=== PATIENT | female | born 1945 | race Caucasian/White ===

== ENCOUNTER → 2020-08-06 10:08 | Outpatient (CLI) | payer MEDICARE, SELFPAY ==
[2020-08-06 08:46] VITALS: BMI 31.2
[2020-08-06 11:58] LABS: Absolute Neutrophil Count 3.8 X10^3/uL (2.0-7.7); Basophil# 0.04 X10^3/uL; Basophil% 0.6 % (0-1); Eosinophil# 0.08 X10^3/uL; Eosinophils% 1.3 % (0-5); Hematocrit 42.9 % (37-47); Hemoglobin 13.7 g/dL (12.0-15.0); Lymphocyte % 30.6 % (19-41); Mean Corp Hgb Conc 31.9 g/dL (32-36); Mean Corpuscular Hgb 29.3 pg (27.0-32.0); Mean Corpuscular Volume 91.9 fL (81-99); Monocyte# 0.37 X10^3/uL; NRBC Flagged by Analyzer 0 % (0-5); Neutrophil # 3.81 X10^3/uL (2.7-7.7); Neutrophil % 61.3 % (47-70); Platelet Count 197 K/mm3 (150-450); RBC Distribution Width CV 13.2 % (11.6-14.6); RBC Distribution Width SD 43.3 fl (35.1-43.9); Red Blood Count 4.67 M/mm3 (4.2-5.4); White Blood Count 6.2 K/mm3 (4.4-11.0)
[2020-08-06 12:22] LABS: ALB/GLOB Ratio 0.9 RATIO (0.9-2.4); AST(SGOT) 25 U/L (15-37); Alanine Aminotransfer ALT/SGPT 37 U/L (13-56); Albumin, Serum 3.8 g/dL (3.2-5.0); Alkaline Phosphatase 93 U/L (45-117); Anion Gap 5 (5-15); BUN 15 mg/dL (7-18); BUN/Creat Ratio 16.6 RATIO (10-20); Calcium,Total 9.5 mg/dL (8.5-10.1); Chloride 106 mmol/L (98-107); Cholesterol 245 mg/dL (200); EST Glomerular Filtration Rate 64 mL/min (>60); Est Glom Filt Rate - Afr Amer 78 mL/min (>60); Globulin 4.3 g/dL (2.2-4.2); Glucose 102 mg/dL (74-106); High Density Lipoprotein 57 mg/dL; Potassium 4.2 mmol/L (3.5-5.1); Protein, Total 8.1 g/dL (6.4-8.2); Sodium Level 139 mmol/L (136-145); Thyroid Stim Hormone (TSH) 1.49 uIU/mL (0.358-3.74); Triglycerides 180 mg/dL; Very Low Density Lipoprotein 36 mg/dL (5-40)
[2020-08-06 12:35] LABS: Vitamin D,25 Hydroxy 26.2 ng/mL
== END ==
PROVIDERS: PCP Internal Medicine; Referring Provider Internal Medicine; Visit Provider Internal Medicine
DX: E78.5 Hyperlipidemia, unspecified (principal); E55.9 Vitamin D deficiency, unspecified; R03.0 Elevated blood-pressure reading, without diagnosis of hypertension; Z87.442 Personal history of urinary calculi
CPT/HCPCS: 36415; 80053; 80061; 82306; 84443; 85025

== ENCOUNTER 2020-08-08 03:12 | Emergency (ER) | payer MEDICARE, SELFPAY ==
[2020-08-06 08:46] VITALS: BMI 31.2
[2020-08-08 03:13] VITALS: BP 198/98; PULSE 85; RESP 15; TEMP 36.6; O2SAT 98; BMI 31.4
--- NOTE | 2020-08-08 03:28 | CT_ITS ---
STUDY: CT ABDOMEN AND PELVIS WITHOUT CONTRAST REASON FOR EXAM: Female, 74 years old. FLANK PAIN RADIATION DOSAGE (If Supplied By Facility): CTDIvol = ( ) mGy, DLP = ( ) mGycm TECHNIQUE: Transaxial images were obtained from the dome of the diaphragm to the symphysis pubis without oral contrast, and without intravenous contrast. Sagittal and coronal images were reconstructed. Individualized dose optimization techniques were used for this CT. COMPARISON: None. FINDINGS: The visualized lung bases are unremarkable. The visualized portions of the heart are within normal limits. Normal liver. There is non-visualization of the gallbladder, which may be secondary to either contraction or a prior cholecystectomy. Normal spleen. There is diffuse atrophy of the pancreas. Normal bilateral adrenal glands. There is a combination of moderate right hydronephrosis and right peripelvic cyst formations as well as right perinephric fat stranding and edema. There is a stone at the right UVJ measuring roughly 3.3 mm. Mild atrophy of the left kidney with left parapelvic cysts. No evidence of hydronephrosis. There is a small hiatal hernia. Normal small intestine. There are multiple colonic diverticula consistent with diverticulosis. The appendix is visualized and appears normal. Normal abdominal aorta. Normal inferior vena cava. Normal retroperitoneum. Normal urinary bladder. There is atrophy of the uterus. Calcified uterine fibroids Normal abdominal wall. There are diffuse degenerative changes of the visualized lumbar spine. CT/Abdomen/Pelvis without Cont IMPRESSION: Right hydronephrosis and proximal right hydroureter with stone at the right UPJ. There is right perinephric fat stranding and edema. Bilateral peripelvic cyst formations are noted. Electronically Signed: Atif Nava DO at 4:46 EDT Tel , Service support ,
--- NOTE | 2020-08-08 03:29 | EDS_ITS ---
HPI HPI - GI History of Present Illness Chief Complaint: Abd Pain Informant: patient Abdominal Pain/Flank Pain Onset: Hours (2) Context: Sudden Onset (sleeping) Timing: Continuous and Waxes and wanes Quality: Dull Location: RLQ (no radiation) Current Severity: Moderate Maximum Severity: Moderate Worsened by: Nothing Relieved by: Nothing Nausea/Vomiting/Emesis GI Symptom: Positive for Nausea and Vomiting Onset: Today Quality: Positive for Nonbilious; Negative for Blood streaks, Coffee ground and Hematemesis Severity: Moderate Diarrhea/Melena/Hematochezia GI Symptom: Negative for Diarrhea, Melena and Hematochezia Associated Symptoms Associated Symptoms: Negative for Dysuria, Frequency, Hematuria and Urgency Narrative Narrative: Patient felt fine before going to bed tonight, she woke up in the middle of the night with this pain in her right lower quadrant. She has had prior cholecystectomy, and she had lithotripsy for a kidney stone a little more than 20 years ago. She recently had been diagnosed with zoster ophthalmicus, and some medications for that but takes no other prescriptions. Prior similar symptoms: Yes ([place]) PFSH [facility] Medical History Elevated blood pressure reading History of kidney stones History of shingles Home Medications neomyern/polymyx/dexoph 1 drp LEFT EYE TID 08/06/20 [History Last Taken Unknown] valacyclovir 1 gram tablet 1,000 mg PO DAILY tab 08/06/20 [History Last Taken Unknown] cephalexin 500 mg PO Q6 7 Days #28 capsule 08/08/20 [Rx Last Taken Unknown] lisinopril 20 mg PO DAILY #30 tab 08/08/20 [Rx Last Taken Unknown] ondansetron HCl 8 mg PO Q8H PRN #20 tab 08/08/20 [Rx Last Taken Unknown] oxycodone-acetaminophen [Percocet] 1 tab PO Q4H PRN 3 Days #14 tab 08/08/20 [Rx Last Taken Unknown] Allergy/AdvReac Type Severity Reaction Status Date / Time No Known Allergies Allergy Verified 08/08/20 03:20 Family History (Updated 07/28/20 @ 16:19 by Erna Pizano) Mother Diabetes Sister Arthritis Other Heart disease Liver disease Thyroid disorder Surgical History History of cholecystectomy Social History Smoking Status: Never smoker alcohol intake: current alcohol intake frequency: holidays/special occasions only Alcohol type: wine substance use type: does not use what type of physical activity do you participate in: walking ROS ROS ED Constitutional Constitutional ED: Denies chills or fever(s) Eyes Eyes: Denies change in vision or diplopia ENT ENT ED: Denies rhinorrhea or sore throat Cardiovascular Cardiovascular: Denies chest pain or palpitations Respiratory/Chest Respiratory/Chest: Denies cough or dyspnea Gastrointestinal Gastrointestinal: Reports abdominal pain, nausea and vomiting; Denies diarrhea Genitourinary Genitourinary ED: Denies dysuria or hematuria Musculoskeletal Musculoskeletal: Denies back pain or neck pain Integumentary Denies abscess or rash Neurologic Neurologic: Denies headache(s), paresthesias or weakness Psychiatric Psychiatric: Denies anxiety or suicidal thoughts EXAM Physical Exam Const Vital Signs: 08/08/20 03:13 08/08/20 05:54 08/08/20 07:22 Temperature 97.8 F Temperature Source Temporal Pulse Rate 85 58 L 59 L Respiratory Rate 15 16 16 Blood Pressure 198/98 H 162/83 H 210/95 H Blood Pressure Mean 131 109 133 Pulse Ox 98 98 Oxygen Delivery Method Room Air Room Air Positive well nourished and well developed Constitutional Narrative: Uncomfortable, actively vomiting; otherwise, no distress General Appearance ED: well developed and NAD HEENT Reports moist mucous membranes normocephalic and atraumatic Eyes PERRL and EOMs intact bilaterally Neck full ROM and supple Resp normal respiratory effort and clear to auscultation bilaterally Cardio regular rate, regular rhythm and no murmurs GI non-tender and non-distended Auscultation: normoactive bowel sounds Palpation: soft Back/Spine no CVA tenderness General Back: other FROM Extremity normal to inspection General Extremety ED: Negative for edema, pulses abnormal or tenderness General Extremity: Negative for edema or pulses abnormal Neuro oriented x3, CN's II-XII intact bilaterally and no sensory deficits noted Sensorium / Orientation: awake and alert Motor Exam: strength 5/5 throughout Skin no rashes or lesions noted and no wounds MDM MDM MDM Narrative Medical decision making narrative: CT confirms a 3.3 mm right ureteral stone with hydronephrosis and perinephric stranding. No other acute findings. Her urinalysis shows signs of infection. Her symptoms are more that of the obstruction as opposed to infection. She was treated with 1 g of IV Rocephin, and her urine was sent for culture. Her creatinine is just slightly elevated compared with her baseline, but not enough to admit her to the hospital just for that. Certainly it should be monitored. With 1 dose of morphine and Zofran, her symptoms were well controlled throughout her ED stay, which was over 4 hours, mainly because her blood pressure was elevated and after her pain went down her pressure went higher up to 210/95. Therefore she was given a dose of clonidine and observed longer, and I spoke with her PCP who called to check on her, and they were already monitoring her blood pressure so we will start her on lisinopril 20 mg daily, so she was given an initial dose of that as well. The patient is comfortable going home, her pressure is coming down gradually at this time, she will continue to be monitored to her family gets here, she was given prescriptions for symptom control in addition to the lisinopril and will follow up. Expectant management indicated as well as outpatient antibiotics. Lab Data Attestation: I reviewed the patient's lab results. Labs: Laboratory Results - last 24 hr 08/08/20 08/08/20 08/08/20 03:20 03:20 03:35 WBC 7.4 RBC 4.34 Hgb 13.1 Hct 39.1 MCV 90.1 MCH 30.2 MCHC 33.5 D RDW Std Deviation 41.6 RDW Coeff of Ling 12.9 Plt Count 167 MPV 11.9 Immature Gran % (Auto) 0.300 Neut % (Auto) 62.4 Lymph % (Auto) 28.3 [place] % (Auto) 7.4 Eos % (Auto) 0.9 Baso % (Auto) 0.7 Absolute Neuts (auto) 4.6 Absolute Lymphs (auto) 2.10 Nucleated RBC % 0 Sodium 139 Potassium 3.5 Chloride 105 Carbon Dioxide 29.0 Anion Gap 5 BUN 20 H Creatinine 1.10 H Estim Creat Clear Calc 39.76 Est GFR (MDRD) Af Amer 62 Est GFR (MDRD) Non-Af 51 L BUN/Creatinine Ratio 18.2 Glucose 141 H Calcium 9.8 Urine Color Yellow Urine Clarity Clear Urine pH 7.0 Ur Specific [place] 1.010 Urine Protein 15 H Urine Glucose (UA) Normal Urine Ketones Negative Urine Occult Blood 250 H Urine Nitrite Negative Urine Bilirubin Negative Urine Urobilinogen Normal Ur Leukocyte Esterase 500 H Urine RBC 10-25 SEEN Urine WBC 10-25 SEEN Ur Squamous Epith Cells 0-5 SEEN Ur Transition Epith Cell 0-5 SEEN Ur Renal Epithelial Cell 0-5 SEEN Urine Bacteria 2+ Urine Mucus 0 SEEN Discharge Plan Triage Chief Complaint: Abd Pain ED Provider: Truong Goyal Dx/Rx/DC Orders Clinical Impression: Ureterolithiasis, Colic, ureteral, Acute UTI, Accelerated hypertension Instructions: ED Hypertension, New (Begin Treatment), ED Kidney Stone w/ Colic Prescriptions: New oxycodone-acetaminophen [Percocet] 5-325 mg tablet 1 tab PO Q4H PRN (Reason: pain) 3 Days Qty: 14 RF: 0 ondansetron HCl 8 mg tablet 8 mg PO Q8H PRN (Reason: nausea and vomiting) Qty: 20 RF: 0 lisinopril 20 mg tablet 20 mg PO DAILY Qty: 30 RF: 0 cephalexin 500 mg capsule 500 mg PO Q6 7 Days Qty: 28 RF: 0 No Action neomyern/polymyx/dexoph 1 drp LEFT EYE TID RF: 0 valacyclovir 1 gram tablet 1,000 mg PO DAILY RF: 0 Primary Care Provider: Ebonie Em Referrals: Pepper Romo MD [STAFF PHYSICIAN] - 1 Week if not improving Ebonie Em MD [Primary Care Provider] - (call for appt) Activity Restrictions/Additional Instructions: Strain all your urine until you passed the stone, so you know it is out. If you do not pass it in 1 week, follow-up with urology. Disposition Disposition: Home, self care
--- NOTE | 2020-08-08 04:03 | ED.RN ---
Medication not crossing over and pharmacy is aware and working with [facility] department to rectify
--- NOTE | 2020-08-08 04:04 | ED.RN ---
Called and talked to and tried to call son and daughter to alert them but the daughter's phone, JACK, states it is JASMYNE so did not leave a message and the son's number was a male but the voicemail did not say his first name so not sure if that is his number. states he does not know their number and his does not have it either.
[2020-08-08 04:07] LABS: Mucous, Urine 0 SEEN /hpf (<or=2+)
[2020-08-08 04:11] LABS: Color, Urine Yellow (Yellow); Glucose, Dipstick Normal (Normal); Ketone-Dipstick Negative (Negative); Leukocyte Esterase-Dipstick 500 /ul (Negative); Nitrite-Dipstick Negative (Negative); Occult Blood-Urine 250 /ul (Negative); Protein-Dipstick 15 mg/dl (Negative); Urine Bilirubin Dipstick Negative (Negative); Urine Clarity Clear (Clear); Urine Urobilinogen Normal (Normal)
[2020-08-08 04:12] LABS: Absolute Neutrophil Count 4.6 X10^3/uL (2.0-7.7); Basophil# 0.05 X10^3/uL; Basophil% 0.7 % (0-1); Eosinophil# 0.07 X10^3/uL; Eosinophils% 0.9 % (0-5); Hematocrit 39.1 % (37-47); Hemoglobin 13.1 g/dL (12.0-15.0); Lymphocyte % 28.3 % (19-41); Mean Corp Hgb Conc 33.5 g/dL (32-36); Mean Corpuscular Hgb 30.2 pg (27.0-32.0); Mean Corpuscular Volume 90.1 fL (81-99); Mean Platelet Vol. 11.9 fl (6.2-12.0); Monocyte# 0.55 X10^3/uL; Monocyte% 7.4 % (0-10); NRBC Flagged by Analyzer 0 % (0-5); Neutrophil # 4.63 X10^3/uL (2.7-7.7); Neutrophil % 62.4 % (47-70); Platelet Count 167 K/mm3 (150-450); RBC Distribution Width CV 12.9 % (11.6-14.6); RBC Distribution Width SD 41.6 fl (35.1-43.9); Red Blood Count 4.34 M/mm3 (4.2-5.4); White Blood Count 7.4 K/mm3 (4.4-11.0)
[2020-08-08 04:19] LABS: Bacteria 2+ /hpf (None Seen); Red Blood Cells-Urine 10-25 SEEN /hpf (0-5); Squamous Epithelial Cells - UA 0-5 SEEN /hpf (5-10); White Blood Cells 10-25 SEEN /hpf (0-5)
[2020-08-08 04:20] LABS: Renal Epithelial Cells 0-5 SEEN /hpf (0-5); Transitional Epithelial - Ur 0-5 SEEN /hpf (0-5)
[2020-08-08 04:22] LABS: Anion Gap 5 (5-15); BUN 20 mg/dL (7-18); BUN/Creat Ratio 18.2 RATIO (10-20); Calcium,Total 9.8 mg/dL (8.5-10.1); Chloride 105 mmol/L (98-107); EST Glomerular Filtration Rate 51 mL/min (>60); Est Glom Filt Rate - Afr Amer 62 mL/min (>60); Estimated Creatinine Clearance 39.76 ml/min; Glucose 141 mg/dL (74-106); Potassium 3.5 mmol/L (3.5-5.1); Sodium Level 139 mmol/L (136-145)
[2020-08-08] MEDS: Morphine 4 MG/ML Syringe IV (04:22)
[2020-08-08] MEDS: Ondansetron 4 MG/2 ML Vial IV (04:22)
--- NOTE | 2020-08-08 04:22 | ED.RN ---
Meds still not crossing override so name, confirmed and [id number] on band. Ondanesron 4mg in 2 ml (lot [id number] and exp 10/2021) given along with the morphine 4 mg in 1 ml (lot [id number] exp 08/25/2021). Both IV and pain a 3.
[2020-08-08] MEDS: Ceftriaxone 1 GM/50 ML BAG IV (05:48)
[2020-08-08 05:54] VITALS: BP 162/83; PULSE 58; RESP 16; O2SAT 98
[2020-08-08 07:22] VITALS: BP 210/95; PULSE 59; RESP 16
[2020-08-08] MEDS: cloNIDine HCl 0.2 MG Tablet PO (07:22)
[2020-08-08] MEDS: Lisinopril 20 MG Tablet PO (07:45)
[2020-08-08 08:10] VITALS: BP 195/103; PULSE 60; RESP 15
== END 2020-08-08 08:18 | disposition home or self-care (01) ==
PROVIDERS: Emergency Provider Emergency Medicine; PCP Internal Medicine
DX: N13.2 Hydronephrosis with renal and ureteral calculous obstruction (principal); N39.0 Urinary tract infection, site not specified; I10 Essential (primary) hypertension; Z87.442 Personal history of urinary calculi; Z79.899 Other long term (current) drug therapy
CPT/HCPCS: 74176; 80048; 81001; 85025; 87077; 87086; 87088; 87186; 96365; 96375; 99285; J7050; A4216; J2405

== ENCOUNTER 2023-09-04 12:21 | Emergency (ER) | payer MEDICARE, SELFPAY ==
[2023-09-04 12:22] VITALS: BP 200/104; PULSE 89; RESP 16; TEMP 36.7; O2SAT 97; BMI 28.3
[2023-09-04 13:38] LABS: Mucous, Urine 0 SEEN /hpf (<or=2+)
[2023-09-04 13:40] LABS: Absolute Neutrophil Count 8.7 X10^3/uL (2.0-7.7); Basophil# 0.04 X10^3/uL; Basophil% 0.4 % (0-1); Eosinophil# 0.03 X10^3/uL; Eosinophils% 0.3 % (0-5); Hematocrit 39.5 % (37-47); Lymphocyte % 10.2 % (19-41); Mean Corp Hgb Conc 32.9 g/dL (32-36); Mean Corpuscular Hgb 30.2 pg (27.0-32.0); Mean Corpuscular Volume 91.6 fL (81-99); Mean Platelet Vol. 11.7 fl (6.2-12.0); Monocyte# 0.79 X10^3/uL; Monocyte% 7.4 % (0-10); NRBC Flagged by Analyzer 0 % (0-5); Neutrophil # 8.74 X10^3/uL (2.7-7.7); Neutrophil % 81.3 % (47-70); Platelet Count 153 K/mm3 (150-450); RBC Distribution Width CV 13.1 % (11.6-14.6); RBC Distribution Width SD 43.8 fl (35.1-43.9); Red Blood Count 4.31 M/mm3 (4.2-5.4); White Blood Count 10.7 K/mm3 (4.4-11.0)
[2023-09-04 13:43] LABS: Color, Urine Yellow (Yellow); Glucose, Dipstick Normal (Normal); Ketone-Dipstick Negative (Negative); Leukocyte Esterase-Dipstick 500 /ul (Negative); Nitrite-Dipstick Negative (Negative); Occult Blood-Urine 250 /ul (Negative); Protein-Dipstick Negative (Negative); Specific Gravity, Urine 1.015 (1.002-1.030); Urine Bilirubin Dipstick Negative (Negative); Urine Clarity Sl. Cloudy (Clear); Urine Urobilinogen Normal (Normal)
[2023-09-04 13:50] LABS: Bacteria 1+ /hpf (None Seen); Red Blood Cells-Urine 0-5 SEEN /hpf (0-5); Squamous Epithelial Cells - UA 0-5 SEEN /hpf (5-10); White Blood Cells 0-5 SEEN /hpf (0-5)
--- NOTE | 2023-09-04 13:53 | EDS_ITS ---
HPI HPI - GI History of Present Illness Chief Complaint: Abd Pain Informant: patient Abdominal Pain/Flank Pain Onset: Days (3) Context: Gradual Onset Timing: Continuous Quality: Aching Location: LLQ Worsened by: Nothing Relieved by: Nothing Nausea/Vomiting/Emesis GI Symptom: Negative for Nausea or Vomiting Diarrhea/Melena/Hematochezia GI Symptom: Negative for Diarrhea, Melena or Hematochezia Associated Symptoms Associated Symptoms: Negative for Dysuria, Frequency, Hematuria or Urgency Narrative Narrative: Patient presents with abdominal pain that has been getting worse over the past 3 days. Patient states it is mainly over the left lower quadrant. Patient denies any radiation to her flank. Patient states she has a history of kidney stones. Patient states she usually has pain radiating into her flank with her kidney stones. Patient denies any dysuria, frequency, or hematuria. Patient describes her pain as aching. Patient states it has been constant. Patient states nothing makes it better nothing makes it worse. Patient denies any nausea or vomiting. Patient denies any diarrhea, melena, or hematochezia. PFSH PFS Medical History Elevated blood pressure reading History of shingles History of kidney stones Home Medications ?Medication ?Instructions ?Recorded ?Last Taken ?Type neomyern/polymyx/dexoph 1 drp LEFT EYE TID 08/06/20 Unknown History cephalexin 500 mg capsule 500 mg PO Q6 7 days #28 CAPSULES 08/08/20 Unknown Rx ondansetron HCl 8 mg tablet 8 mg PO Q8H PRN nausea and 08/08/20 Unknown Rx vomiting #20 tabs oxycodone-acetaminophen 5 mg-325 1 tab PO Q4H PRN pain 3 days #14 08/08/20 Unknown Rx mg tablet (Percocet) tabs valacyclovir 1 gram tablet 1,000 mg PO .COMPLEX #30 tabs 08/14/20 Unknown Rx lisinopril 20 mg tablet 20 mg PO DAILY #90 tabs 11/29/22 Unknown Rx Allergy/AdvReac Type Severity Reaction Status Date / Time No Known Allergies Allergy Verified 09/04/23 12:24 Family History (Updated 07/28/20 @ 16:19 by Erna Pizano) Mother Diabetes Sister Arthritis Other Heart disease Liver disease Thyroid disorder Surgical History History of cholecystectomy Social History Smoking Status: Never smoker alcohol intake: current alcohol intake frequency: holidays/special occasions only Alcohol type: wine substance use type: does not use what type of physical activity do you participate in: walking ROS ROS ED Constitutional Constitutional ED: Denies chills or fever(s) Eyes Eyes: Denies blurry vision or change in vision ENT ENT ED: Denies rhinorrhea or sore throat Cardiovascular Cardiovascular: Denies chest pain or palpitations Respiratory/Chest Respiratory/Chest: Denies cough or dyspnea Gastrointestinal Gastrointestinal: Reports abdominal pain; Denies nausea or vomiting Genitourinary Genitourinary ED: Denies dysuria or hematuria Musculoskeletal Musculoskeletal: Denies back pain or neck pain Integumentary Reports rash; Denies abscess Neurologic Neurologic: Denies headache(s) or weakness Allergic/Immunologic Allergic/Immunologic ED: Denies mouth swelling or urticaria EXAM Physical Exam Const Vital Signs: 09/04/23 12:22 09/04/23 14:22 09/04/23 16:00 Temperature 98.1 F Temperature Source Temporal Pulse Rate 89 65 68 Respiratory Rate 16 20 H 18 Blood Pressure 200/104 H 155/76 H 148/77 H Blood Pressure Mean 136 102 100 Pulse Ox 97 95 98 Oxygen Delivery Method Room Air Positive well nourished and well developed General Appearance ED: well developed and NAD HEENT Reports moist mucous membranes Neck supple and no JVD Resp normal respiratory effort and clear to auscultation bilaterally Cardio regular rate and regular rhythm GI non-distended Palpation: soft and tender LLQ; Negative for guarding or rebound tenderness present Back/Spine no CVA tenderness Neuro CN's II-XII intact bilaterally, moves all extremities and no sensory deficits noted Sensorium / Orientation: alert Motor Exam: strength 5/5 throughout Psych mental status grossly normal and thought process normal MDM MDM MDM Narrative Medical decision making narrative: Differential diagnosis includes ureteral calculus, diverticulitis, diverticulosis, gastroenteritis, urinary tract infection, and pyelonephritis. CT scan of the abdomen pelvis will be obtained to assess for ureteral calculus, diverticulitis, and pyelonephritis. CBC will be obtained to assess for leukocytosis and anemia. Basic metabolic profile will be obtained to assess for electrolyte abnormality and renal function. Urinalysis will be obtained to assess for urinary tract infection and hematuria. Lab Data Attestation: I reviewed the patient's lab results. Lab results narrative: CBC was reviewed and was within normal limits. Basic metabolic profile was reviewed and was within normal limits. Urinalysis was reviewed. Leukocyte esterase was 500 and occult blood was 250. There were 0-5 red blood cells and 0-5 white blood cells noted. Labs: Laboratory Results - last 24 hr 09/04/23 09/04/23 13:30 13:33 WBC 10.7 RBC 4.31 Hgb 13.0 Hct 39.5 MCV 91.6 MCH 30.2 MCHC 32.9 RDW Std Deviation 43.8 RDW Coeff of Ling 13.1 Plt Count 153 MPV 11.7 Immature Gran % (Auto) 0.400 Neut % (Auto) 81.3 H Lymph % (Auto) 10.2 L [place] % (Auto) 7.4 Eos % (Auto) 0.3 Baso % (Auto) 0.4 Absolute Neuts (auto) 8.7 H Absolute Lymphs (auto) 1.10 Nucleated RBC % 0 Sodium 136 Potassium 3.5 Chloride 108 H Carbon Dioxide 26.0 Anion Gap 2 L BUN 28 H Creatinine 1.02 Estim Creat Clear Calc 45.92 Est GFR (MDRD) Af Amer 67 Est GFR (MDRD) Non-Af 56 L BUN/Creatinine Ratio 27.5 H Glucose 131 H Calcium 10.1 Urine Color Yellow Urine Clarity Sl. Cloudy Urine pH 6.0 Ur Specific [place] 1.015 Urine Protein Negative Urine Glucose (UA) Normal Urine Ketones Negative Urine Occult Blood 250 H Urine Nitrite Negative Urine Bilirubin Negative Urine Urobilinogen Normal Ur Leukocyte Esterase 500 H Urine RBC 0-5 SEEN Urine WBC 0-5 SEEN Ur Squamous Epith Cells 0-5 SEEN Urine Bacteria 1+ Urine Mucus 0 SEEN Radiography Diagnostic Testing: Clinical Impression(s) from Imaging Studies Abdomen/Pelvis CT 09/04/23 14:38 IMPRESSION: Left hydronephrosis and left hydroureter with the perinephric stranding and periureteric stranding. Findings are in keeping with a recently passed 3 mm calculus which is at the base of the bladder on the left side. Stable bilateral renal cysts and parapelvic cysts. Electronically Signed: Marco Zhu MD at 15:26 EDT , CT scan of the abdomen pelvis was obtained. There is left hydronephrosis and hydroureter with perinephric and periureteral stranding. There is a recently passed 3 mm calculus at the base of the bladder on the left. There is no other acute abnormality noted. This was interpreted by the radiologist was also independently reviewed by myself. Treatment and Re-Evaluation :: Patient was given IV Toradol. Patient was feeling better on reevaluation. Patient was advised of her findings. Patient was instructed plenty fluids. P leroy was instructed to follow-up with her primary care physician and urologist in 5 to 7 days. Patient understood and was agreeable with the plan. All questions were answered. Discharge Plan Triage Chief Complaint: Abd Pain ED Provider: Jaspreet Jeffrey Dx/Rx/DC Orders Clinical Impression: Ureterolithiasis, Colic, ureteral Instructions: ED Kidney Stone, Passed Prescriptions: No Action neomyern/polymyx/dexoph 1 drp LEFT EYE TID oxycodone-acetaminophen [Percocet] 5-325 mg tablet 1 tab PO Q4H PRN (Reason: pain) 3 Days Qty: 14 0RF ondansetron HCl 8 mg tablet 8 mg PO Q8H PRN (Reason: nausea and vomiting) Qty: 20 0RF cephalexin 500 mg capsule 500 mg PO Q6 7 Days Qty: 28 0RF valacyclovir 1 gram tablet 1,000 mg PO .COMPLEX Qty: 30 0RF Rx Instructions: Take 1 tablet every 8 hours for 7 days then 1 tablet daily for 30 days lisinopril 20 mg tablet 20 mg PO DAILY Qty: 90 3RF Primary Care Provider: Ebonie Em Referrals: Pepper Romo MD [Med Staff - Active Staff] - 5-7 Days Ebonie Em MD [Primary Care Provider] - 5-7 Days Print Language: Lebanese Disposition Disposition: Home, Self Care
[2023-09-04 13:54] LABS: Anion Gap 2 (5-15); BUN 28 mg/dL (7-18); BUN/Creat Ratio 27.5 RATIO (10-20); Calcium,Total 10.1 mg/dL (8.5-10.1); Chloride 108 mmol/L (98-107); Creatinine, Serum 1.02 mg/dL (0.55-1.02); EST Glomerular Filtration Rate 56 mL/min (>60); Est Glom Filt Rate - Afr Amer 67 mL/min (>60); Estimated Creatinine Clearance 45.92 ml/min; Glucose 131 mg/dL (74-106); Potassium 3.5 mmol/L (3.5-5.1); Sodium Level 136 mmol/L (136-145)
[2023-09-04 14:22] VITALS: BP 155/76; PULSE 65; RESP 20; O2SAT 95
--- NOTE | 2023-09-04 14:38 | CT_ITS ---
STUDY: CT ABDOMEN AND PELVIS WITHOUT CONTRAST REASON FOR EXAM: Female, 78 years old. Abdominal pain RADIATION DOSAGE (If Supplied By Facility): CTDIvol = ( 10.90 ) mGy, DLP = ( 490.14 ) mGycm TECHNIQUE: Transaxial images were obtained from the dome of the diaphragm to the symphysis pubis without oral contrast, and without intravenous contrast. Sagittal and coronal images were reconstructed. Individualized dose optimization techniques were used for this CT. COMPARISON: Comparison is made with prior study dated August 08, 2020. FINDINGS: Stable minimal scarring in the lingular segment of the left upper lobe. The visualized portions of the heart are within normal limits. Normal liver. The patient is status post cholecystectomy. Normal spleen. Normal pancreas. Normal bilateral adrenal glands. There is a 4.9 cm x 4.3 cm cyst in the anterior aspect of the right kidney. This also evidence of a small cyst in the lower pole of the right kidney as well as parapelvic cysts. Left perinephric stranding. Left parapelvic renal cysts and left hydronephrosis. There is a 3 mm calculus at the base of the bladder on the left side suggestive of a recently passed calculus. Left periureteric stranding. Normal visualized stomach. Normal small intestine. There are multiple colonic diverticula consistent with diverticulosis. The appendix is visualized and appears normal. Normal abdominal aorta. Normal inferior vena cava. Normal retroperitoneum. Normal urinary bladder. There is atrophy of the uterus. Calcified uterine fibroids. Normal abdominal wall. There are diffuse degenerative changes of the visualized lumbar spine. CT/Abdomen/Pelvis without Cont IMPRESSION: Left hydronephrosis and left hydroureter with the perinephric stranding and periureteric stranding. Findings are in keeping with a recently passed 3 mm calculus which is at the base of the bladder on the left side. Stable bilateral renal cysts and parapelvic cysts. Electronically Signed: Marco Zhu MD at 15:26 EDT ,
[2023-09-04] MEDS: Ketorolac 15 MG/ML Vial IV (15:59)
[2023-09-04 16:00] VITALS: BP 148/77; PULSE 68; RESP 18; O2SAT 98
[2023-09-04 16:25] VITALS: BP 138/77; PULSE 81; RESP 14; TEMP 36.6; O2SAT 100
== END 2023-09-04 16:28 | disposition home or self-care (01) ==
PROVIDERS: Emergency Provider Emergency Medicine; PCP Internal Medicine; Visit Provider Emergency Medicine
DX: N13.2 Hydronephrosis with renal and ureteral calculous obstruction (principal); N23 Unspecified renal colic; Z87.442 Personal history of urinary calculi
CPT/HCPCS: 74176; 80048; 81001; 85025; 96374; 99283; A4216

== ENCOUNTER → 2023-09-11 | Outpatient (CLI) | payer MEDICARE, SELFPAY ==
[2023-09-11 15:34] LABS: Bacteria 0 SEEN /hpf (None Seen); Mucous, Urine 0 SEEN /hpf (<or=2+)
[2023-09-11 16:51] LABS: Absolute Lymphocyte Count 2.01 X10^3/uL (0.83-4.51); Absolute Neutrophil Count 3.8 X10^3/uL (2.0-7.7); Basophil# 0.03 X10^3/uL; Basophil% 0.5 % (0-1); Eosinophil# 0.11 X10^3/uL; Eosinophils% 1.7 % (0-5); Hematocrit 36.1 % (37-47); Hemoglobin 11.6 g/dL (12.0-15.0); Lymphocyte # 2.01 X10^3/ul (0.83-4.51); Lymphocyte % 31.9 % (19-41); Mean Corp Hgb Conc 32.1 g/dL (32-36); Mean Corpuscular Hgb 30.1 pg (27.0-32.0); Mean Corpuscular Volume 93.5 fL (81-99); Mean Platelet Vol. 11.3 fl (6.2-12.0); Monocyte# 0.35 X10^3/uL; Monocyte% 5.6 % (0-10); NRBC Flagged by Analyzer 0 % (0-5); Neutrophil # 3.79 X10^3/uL (2.7-7.7); Neutrophil % 60.1 % (47-70); Platelet Count 209 K/mm3 (150-450); RBC Distribution Width CV 12.7 % (11.6-14.6); RBC Distribution Width SD 43.8 fl (35.1-43.9); Red Blood Count 3.86 M/mm3 (4.2-5.4); White Blood Count 6.3 K/mm3 (4.4-11.0)
[2023-09-11 16:55] LABS: Color, Urine Yellow (Yellow); Glucose, Dipstick Normal (Normal); Ketone-Dipstick Negative (Negative); Leukocyte Esterase-Dipstick 500 /ul (Negative); Nitrite-Dipstick Negative (Negative); Occult Blood-Urine 10 /ul (Negative); Protein-Dipstick Negative (Negative); Specific Gravity, Urine 1.025 (1.002-1.030); Urine Bilirubin Dipstick Negative (Negative); Urine Clarity Clear (Clear); Urine Urobilinogen Normal (Normal)
[2023-09-11 17:18] LABS: Red Blood Cells-Urine 0-5 SEEN /hpf (0-5); Squamous Epithelial Cells - UA 0-5 SEEN /hpf (5-10); White Blood Cells 5-10 SEEN /hpf (0-5)
[2023-09-11 22:04] LABS: ALB/GLOB Ratio 1.1 RATIO (0.9-2.4); AST(SGOT) 27 U/L (15-37); Alanine Aminotransfer ALT/SGPT 44 U/L (13-56); Albumin, Serum 3.7 g/dL (3.2-5.0); Alkaline Phosphatase 71 U/L (45-117); Anion Gap 4 (5-15); BUN 21 mg/dL (7-18); BUN/Creat Ratio 22.2 RATIO (10-20); Chloride 110 mmol/L (98-107); Cholesterol 183 mg/dL (200); Creatinine, Serum 0.95 mg/dL (0.55-1.02); EST Glomerular Filtration Rate 61 mL/min (>60); Est Glom Filt Rate - Afr Amer 73 mL/min (>60); Globulin 3.5 g/dL (2.2-4.2); Glucose 96 mg/dL (74-106); High Density Lipoprotein 48 mg/dL; Potassium 3.8 mmol/L (3.5-5.1); Protein, Total 7.2 g/dL (6.4-8.2); Sodium Level 141 mmol/L (136-145); Triglycerides 180 mg/dL; Very Low Density Lipoprotein 36 mg/dL (5-40)
== END | disposition home or self-care (01) ==
LOC: BIMLAB 15:32
PROVIDERS: PCP Family Medicine; Referring Provider Nurse Practitioner; Visit Provider Nurse Practitioner
DX: R03.0 Elevated blood-pressure reading, without diagnosis of hypertension (principal); N20.1 Calculus of ureter; E66.3 Overweight
CPT/HCPCS: 36415; 80053; 80061; 81001; 85025

== ENCOUNTER → 2023-10-11 | Outpatient (CLI) | payer MEDICARE, SELFPAY ==
--- NOTE | 2023-10-11 11:26 | BI_ITS ---
MAMMOGRAPHY - BILATERAL SCREENING REASON FOR EXAM: Female, 78 years old. Routine annual screening examination. PERTINENT HISTORY: Non-contributory. Prior left needle breast biopsy. TECHNIQUE: Digital bilateral breast casey (3D mammographic acquisition) in the CC and MLO projections. 2-D mediolateral oblique (MLO) and craniocaudad (CC) views of both breasts were obtained. CAD: Full Field Digital Mammography with Computer Added Detection was performed. COMPARISON: No comparison mammograms available at this time. If any prior films become available, an addendum to this report can be generated. FINDINGS: Breast Composition: There are scattered areas of fibroglandular density. There are no dominant masses or suspicious calcifications. Small benign-appearing bilateral axillary lymph nodes. No other significant abnormalities are identified. BI/SCRN MAMM (CAD)W/CASEY BILAT IMPRESSION: Negative screening mammogram. Yearly followup mammogram recommended. (A) ASSESSMENT CATEGORY: BIRADS Category 2: Benign. A letter regarding these results will be sent to the patient by the facility within 30 days. Approximately 10% of breast cancers are not detected by mammography. A normal mammogram should not delay biopsy of a clinically suspicious abnormality. [id number] Electronically Signed: Marco Zhu MD at 14:11 EDT ,
== END | disposition home or self-care (01) ==
LOC: OPBI 11:40
PROVIDERS: PCP Nurse Practitioner; Referring Provider Nurse Practitioner; Visit Provider Nurse Practitioner
DX: Z12.31 Encounter for screening mammogram for malignant neoplasm of breast (principal)
CPT/HCPCS: 77063; 77067

== ENCOUNTER → 2024-06-10 | Outpatient (CLI) | payer MEDICARE, SELFPAY ==
[2024-06-10 15:37] LABS: Basophil# 0.04 X10^3/uL; Basophil% 0.8 % (0-1); Eosinophil# 0.09 X10^3/uL; Eosinophils% 1.8 % (0-5); Hematocrit 38.1 % (37-47); Hemoglobin 12.3 g/dL (12.0-15.0); Lymphocyte % 31.3 % (19-41); Mean Corp Hgb Conc 32.3 g/dL (32-36); Mean Corpuscular Hgb 30.3 pg (27.0-32.0); Mean Corpuscular Volume 93.8 fL (81-99); Mean Platelet Vol. 12.1 fl (6.2-12.0); Monocyte# 0.34 X10^3/uL; Monocyte% 6.7 % (0-10); NRBC Flagged by Analyzer 0 % (0-5); Neutrophil # 3.03 X10^3/uL (2.7-7.7); Neutrophil % 59.2 % (47-70); Platelet Count 160 K/mm3 (150-450); RBC Distribution Width CV 13.5 % (11.6-14.6); RBC Distribution Width SD 46.3 fl (35.1-43.9); Red Blood Count 4.06 M/mm3 (4.2-5.4); White Blood Count 5.1 K/mm3 (4.4-11.0)
[2024-06-10 17:16] LABS: Vitamin D,25 Hydroxy 38.4 ng/mL (30-100)
[2024-06-10 21:39] LABS: ALB/GLOB Ratio 1.5 RATIO (0.9-2.4); AST(SGOT) 24 U/L (<=31); Alanine Aminotransfer ALT/SGPT 17 U/L (<=34); Albumin, Serum 4.4 g/dL (3.4-4.8); Alkaline Phosphatase 73 U/L (35-104); Anion Gap 11 (5-15); BUN 24 mg/dL (4-19); BUN/Creat Ratio 22.8 RATIO (10-20); Carbon Dioxide 23.6 mmol/L (21.0-32.0); Chloride 108 mmol/L (98-108); Cholesterol 219 mg/dL (<=200); Creatinine, Serum 1.07 mg/dL (0.70-1.20); EST Glomerular Filtration Rate 53 (>60); Glucose 93 mg/dL (70-99); High Density Lipoprotein 69 mg/dL; Low Density Lipoprotein Calc. 132 mg/dL; Potassium 4.1 mmol/L (3.3-5.1); Protein, Total 7.4 g/dL (5.9-8.4); Sodium Level 143 mmol/L (133-145); Total Bilirubin 0.31 mg/dL (0.00-1.30); Triglycerides 91 mg/dL; Very Low Density Lipoprotein 18 mg/dL (5-40); cholesterol:hdl ratio screen 3.16
== END | disposition home or self-care (01) ==
LOC: BIMLAB 11:13
PROVIDERS: PCP Internal Medicine; Referring Provider Internal Medicine; Visit Provider Internal Medicine
DX: E55.9 Vitamin D deficiency, unspecified (principal); I10 Essential (primary) hypertension
CPT/HCPCS: 36415; 80053; 80061; 82306; 85025